=== PATIENT | male | born 1965 | race Caucasian/White ===

== ENCOUNTER → 2019-01-08 | Outpatient (CLI) | payer OTHER ==
[~2019-01-08] MED LIST: LISI10TA2 PO
--- NOTE | 2019-01-08 17:26 | KCIC ---
3 view study of the right foot Clinical indications: Right foot pain for 4 days. Pain is in the Achilles area. No known injury. FINDINGS: No acute fracture or dislocation or lytic process or periosteal reaction is evident. Alignment is normal. 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 A small bunion is seen with overlying medial soft tissue swelling which is mild. No plantar spur of the calcaneus is seen. There is a moderate size spur of the posterior aspect of the calcaneus at the attachment of the Achilles tendon. Soft tissue swelling is seen here. IMPRESSION: No acute osseous abnormality. Moderate-sized posterior spur of the calcaneus at the attachment of the Achilles tendon with associated soft tissue swelling. Electronically signed by: Darian Faust MD (01/08/2019 5:23 PM) [email or web address]
== END | disposition home or self-care (01) ==
LOC: KCIC 10:17
PROVIDERS: ATTEND Nurse Practitioner Gerontology
DX: M19.071 Primary osteoarthritis, right ankle and foot (principal); M77.31 Calcaneal spur, right foot
CPT/HCPCS: 73630